=== PATIENT | female | born 1980 | race African-American/Black ===

== ENCOUNTER 2022-11-03 12:21 | Emergency (ER) | payer MEDICAID ==
[~2022-11-03] VITALS: Ht 165.1 cm; Wt 93.0 kg
--- NOTE | 2022-11-03 12:21 | NUR ---
seen and examined by
[2022-11-03] MEDS ORDERED: LISI40TA13 (12:38)
[2022-11-03] MEDS ORDERED: DIVA500T54 PO (12:38)
[2022-11-03] MEDS ORDERED: DULO30CA52 PO (12:38)
[2022-11-03] MEDS ORDERED: OMEP40CA21 PO (12:38)
[2022-11-03] MEDS ORDERED: CYCL5TAB PO (12:38)
[2022-11-03] MEDS ORDERED: FURO20TA4 PO (12:38)
[2022-11-03] MEDS ORDERED: QUET300T20 (12:38)
[2022-11-03] MEDS ORDERED: MORPHINE SULFATE 4 MG/1 ML DISP.SYRIN IV ONE (13:00)
[2022-11-03] MEDS ORDERED: CYCLOBENZAPRINE HCL 10 MG TABLET PO ONE (13:00)
[2022-11-03] MEDS ORDERED: ONDANSETRON 4 MG/2 ML VIAL IV ONE ×2 (13:00→21:45)
[2022-11-03] MEDS ORDERED: IV NORMAL SALINE 500 ML BAG IV ONE ×2 (13:00→15:45)
[2022-11-03] MEDS ORDERED: ONDANSETRON 4 MG/2 ML VIAL ONE ×2 (13:11→21:50)
[2022-11-03] MEDS ORDERED: MORPHINE SULFATE 4 MG/1 ML DISP.SYRIN ONE (13:11)
[2022-11-03] MEDS ORDERED: CYCLOBENZAPRINE HCL 10 MG TABLET ONE (13:11)
[2022-11-03 13:49] LABS: CARBON DIOXIDE 25 mmol/L (21-32); CHLORIDE 100 mmol/L (98-107); CREATININE 0.6 mg/dL (0.6-1.3); HEMATOCRIT 40.7 % (31.2-41.9); MEAN CORPUSCULAR HEMOGLOBIN 29.7 uug (24.7-32.8); MEAN CORPUSCULAR VOLUME 87.1 fL (75.5-95.3); PLATELET COUNT (AUTO) 390 K/uL (179-408); POTASSIUM 3.8 mmol/L (3.5-5.1); UREA NITROGEN, BLOOD 15 mg/dL (7-18)
[2022-11-03 13:55] LABS: ALANINE AMINOTRANSFERASE 19 U/L (14-59); ALKALINE PHOSPHATASE 91 U/L (50-136); ASPARTATE AMINOTRANSFERASE 13 U/L (15-37); BILIRUBIN,TOTAL 0.2 mg/dL (0.2-1.0); TOTAL PROTEIN, SERUM 7.8 g/dL (6.4-8.2)
[2022-11-03] MEDS ORDERED: KETOROLAC TROMETHAMINE 30 MG INJ IVP ONE (15:00)
[2022-11-03] MEDS ORDERED: KETOROLAC TROMETHAMINE 30 MG INJ ONE (15:45)
--- NOTE | 2022-11-03 16:00 | NUR ---
ua collected and sent to lab
[2022-11-03] MEDS ORDERED: SWABABLE VALVE TRANSFER SET EA MC ONE (16:21)
[2022-11-03] MEDS ORDERED: IOHEXOL 300MG/ML 100 ML INFUS..BTL ONE (16:21)
[2022-11-03] MEDS ORDERED: IV NORMAL SALINE 250 ML IV ONE (16:23)
[2022-11-03 16:44] LABS: *BILIRUBIN,URIN NEGATIVE (NEGATIVE); *BLOOD, URINE NEGATIVE (NEGATIVE); *CLARITY,URINE CLEAR (CLEAR); *COLOR,URINE YELLOW (YELLOW); *KETONES,URINE NEGATIVE (NEGATIVE); *UROBILINOGEN,URINE 0.2 E.U./dl (NORMAL); LEUKOCYTE ESTERASE ,URINE TRACE (NEGATIVE); NITRITE, URINE NEGATIVE (NEGATIVE); UGLUCOSE NEGATIVE (NEGATIVE)
[2022-11-03 16:45] LABS: *URINE HCG, QUAL NEGATIVE (NEGATIVE)
[2022-11-03 16:56] LABS: BACTERIA,URINE MANY /HPF (NONE SEEN); RBC,URINE 0-3 /HPF (0-3); SQUAMOUS EPITHELIAL CELL,UR MODERATE /HPF (NONE SEEN)
--- NOTE | 2022-11-03 17:17 | NUR ---
CT scan in process
[2022-11-03] MEDS ORDERED: DIAZEPAM 10 MG/2 ML DISP.SYRIN IV ONE (18:15)
[2022-11-03] MEDS ORDERED: DIAZEPAM 10 MG/2 ML DISP.SYRIN ONE (18:45)
--- NOTE | 2022-11-03 21:28 | NUR ---
Received transfer information from rn case manager, Pt accepted to [facility], Accepted by Dr. Jordan Chávez, number to report .
[2022-11-03] MEDS ORDERED: IBUP-1957 PO (21:44)
[2022-11-03] MEDS ORDERED: HYDR-3980 PO (21:44)
[2022-11-03] MEDS ORDERED: methylPREDNISolone SOD SUCC 40 MG/ML VIAL IV ONE (21:45)
[2022-11-03] MEDS ORDERED: HYDROMORPHONE 1 MG/1 ML DISP.SYRIN IV ONE (21:45)
[2022-11-03] MEDS ORDERED: methylPREDNISolone SOD SUCC 40 MG/ML VIAL ONE (21:50)
[2022-11-03] MEDS ORDERED: HYDROMORPHONE 1 MG/1 ML DISP.SYRIN ONE (21:51)
--- NOTE | 2022-11-03 22:00 | NUR ---
Patient stated that she would not like to be transferred to [facility].
--- NOTE | 2022-11-03 22:12 | NUR ---
Patient discharged to home in stable condition. Written and verbal after care instructions given. Patient verbalizes understanding of instructions. Stressed follow up or return to ER for worsening s/s. Patient was wheeled out to private car by son and was instructed not to drive.
[2022-11-03 22:18] VITALS: BP 112/73; TEMP 97.2; O2SAT 99
== END 2022-11-03 22:19 | disposition home or self-care (01) ==
LOC: ER 12:21
DX: M54.50 Low back pain, unspecified (principal); J44.9 Chronic obstructive pulmonary disease, unspecified; Z79.899 Other long term (current) drug therapy
CPT/HCPCS: 99285; 96375; 96374; 72131; 80053; 81001; 84703; 85025; 36415; 96376; 87040; J3360; J1885; J2920; J2405 ×2; Q9967; J1170; J2270; J7040 ×2

== ENCOUNTER 2023-02-18 20:47 | Emergency (ER) | payer MEDICAID ==
[~2023-02-18] VITALS: Ht 165.1 cm; Wt 98.4 kg
[~2023-02-18 20:47] MED LIST: CYCL5TAB PO; DIVA500T54 PO; DULO30CA52 PO; FURO20TA4 PO; HYDR-3980 PO; IBUP-1957 PO; LISI40TA13; OMEP40CA21 PO; QUET300T20
[2023-02-18] MEDS ORDERED: HYDROMORPHONE HCL 2 MG TABLET PO ONE (21:15)
[2023-02-18] MEDS ORDERED: HYDROMORPHONE HCL 2 MG TABLET ONE (21:22)
[2023-02-18] MEDS ORDERED: HYDR2TAB4 PO (21:42)
[2023-02-18] MEDS ORDERED: NALO4SPR NS (21:42)
[2023-02-18 21:50] VITALS: BP 127/78; O2SAT 99
== END 2023-02-18 21:50 | disposition home or self-care (01) ==
LOC: ER 20:48
DX: G89.29 Other chronic pain (principal); M25.511 Pain in right shoulder; M54.9 Dorsalgia, unspecified; J44.9 Chronic obstructive pulmonary disease, unspecified; Z79.1 Long term (current) use of non-steroidal anti-inflammatories (NSAID); Z79.899 Other long term (current) drug therapy
CPT/HCPCS: 73030; A4606; A4663